=== PATIENT | male | born 1975 | race Caucasian/White ===

== ENCOUNTER 2016-04-04 10:12 | Emergency (ER) | payer MEDICAID ==
[~2016-04-04] VITALS: Ht 182.9 cm; Wt 99.8 kg
[2016-04-04 11:10] VITALS: BP 134/92
[2016-04-04] MEDS ORDERED: Azithromycin 250mg tab ORAL ONE (11:45)
[2016-04-04] MEDS ORDERED: TRAMADOL HCL50 MG ORAL (11:54)
[2016-04-04] MEDS ORDERED: CHLORPHENIRAMINE4 M1 PO (11:54)
[2016-04-04] MEDS ORDERED: AZITHROMYCIN250 MG ORAL (11:54)
[2016-04-04 12:04] VITALS: BP 134/92
--- NOTE | 2016-04-05 00:40 | Emergency Room Report ---
History of Present Illness General Chief Complaint: Sore Throat Source: Patient Present Illness HPI Patient presents with several days of URI sy. Also with R facial pain, congestion and d/c from nose. Had flu shot. No smoke. No NVD. No rashes. HANSEN but no neck pain. Pain = pressure, constant and 6/10, slight radiate to eye. Min sore throat. Some cough. No rashes. Took motrin with some relief. H/O meningitis in past -- this feels different. Allergies: Coded Allergies: No Known Allergies (Unverified , 04/04/16) Patient History Past Medical History: see triage record Social History: Denies: smoking Social History Narrative between jobs Reviewed Nursing Documentation: PMH: Agreed, PSxH: Agreed Nursing Documentation-PMH Past Medical History: No History, Except For Review of Systems All Other Systems: negative except mentioned in HPI Physical Exam Vital Signs Date Time Temp Pulse Resp B/P Pulse Ox O2 Delivery O2 Flow Rate FiO2 04/04/16 10:31 98.1 84 18 134/92 96 Room Air Sp02 EP Interpretation: reviewed, normal General Appearance: well appearing, no apparent distress, GCS 15 Head: normocephalic, atraumatic Eyes: bilateral eye PERRL, bilateral eye normal inspection ENT: hearing grossly normal, normal voice, pharyngeal erythema, other - tendern R maxillary sinus area Neck: full range of motion, supple, no meningismus Respiratory: chest non-tender, lungs clear, normal breath sounds, no respiratory distress, speaking full sentences Cardiovascular #1: regular rate, rhythm, no edema Gastrointestinal: normal bowel sounds, non tender, soft Musculoskeletal: back normal, digits/nails normal, gait/station normal, normal range of motion Neurologic: alert, oriented x3, motor strength/tone normal, sensory intact, cerebellar normal, normal gait, speech normal Psychiatric: mood/affect normal Skin: no rash Medical Decision Making Diagnostic Impression: Primary Impression: Sinusitis Qualified Codes: J01.00 - Acute maxillary sinusitis, unspecified ER Course Patient presents with URI sy and face pain. DDx: pharyngitis, sinusitis, miningitis (doubt due to exam), dental abscess, allergies amongst others. Hx and exam c/w sinusitis. Antibiotics indicated as well as decongestants and analgesics. Patient stable for outpatient observation and treatment. Last Vital Signs Date Time Temp Pulse Resp B/P Pulse Ox O2 Delivery O2 Flow Rate FiO2 04/04/16 12:04 98.1 84 18 134/92 96 Room Air Status: improved Disposition: HOME, SELF-CARE Condition: Improved Scripts Chlorpheniramine Maleate (Chlorpheniramine Maleate) 4 Mg Tablet 4 MG PO Q6HR, #12 TAB Prov: Abel Brito M.D. 04/04/16 Azithromycin* (ZITHROMAX*) 250 Mg Tablet 250 MG ORAL DAILY for 4 Days, TAB start tomorrow Prov: Abel Brito M.D. 04/04/16 Tramadol Hcl* (ULTRAM*) 50 Mg Tablet 50 MG ORAL Q6H Y for For Pain, #10 TAB 0 Refills Prov: Abel Brito M.D. 04/04/16 Referrals: [facility],REFERRING (PCP) Patient Instructions: Sinusitis, Adult Additional Instructions: OK to take tylenol. Follow up with your MD next week. Abel Brito M.D. Apr 05, 2016 00:40
== END 2016-04-04 12:04 | disposition home or self-care (01) ==
LOC: EMR 11:56
DX: J32.9 Chronic sinusitis, unspecified (principal); R51 Headache; Z86.61 Personal history of infections of the central nervous system
CPT/HCPCS: 99284; Q0144

== ENCOUNTER 2016-04-17 14:35 | Emergency (ER) | payer MEDICAID ==
[~2016-04-17] VITALS: Ht 182.9 cm; Wt 104.3 kg
[~2016-04-17 14:35] MED LIST: AZITHROMYCIN250 MG ORAL; CHLORPHENIRAMINE4 M1 PO; TRAMADOL HCL50 MG ORAL
[2016-04-17] MEDS ORDERED: Ipratropium 0.02% Inh Soln 2.5ml UD HHN ONE (15:30)
[2016-04-17] MEDS ORDERED: Albuterol ud Inhalation HHN ONE (15:30)
[2016-04-17] MEDS ORDERED: ALBUTEROL SULF8.5 GM INH (16:06)
[2016-04-17] MEDS ORDERED: LEVAQUIN500 MG ORAL (16:06)
--- NOTE | 2016-04-17 16:09 | Emergency Room Report ---
History of Present Illness General Chief Complaint: Upper Respiratory Illness Source: Patient Present Illness HPI The patient was treated for sinusitis with a Z-Panchito 2 weeks ago (04/04). It's gotten somewhat better but he still feels congestion and pressure in his sinuses with some yellow discharge when he blows his nose. He denies any fevers. He says also had some wheezing and cough. The cough does not keep him awake at night. No NVD, rashes, ear pain, neck pain, rashes. Some headache /. The patient has a history of childhood asthma. Allergies: Coded Allergies: No Known Allergies (Unverified , 04/04/16) Patient History Past Medical History: see triage record Social History: Denies: smoking Reviewed Nursing Documentation: PMH: Agreed, PSxH: Agreed Nursing Documentation-PMH Past Medical History: No Stated History Review of Systems All Other Systems: negative except mentioned in HPI Physical Exam Vital Signs Date Time Temp Pulse Resp B/P Pulse Ox O2 Delivery O2 Flow Rate FiO2 04/17/16 15:02 98.2 80 16 145/80 97 Room Air Sp02 EP Interpretation: reviewed, normal General Appearance: well appearing, no apparent distress Head: normocephalic, atraumatic Eyes: bilateral eye PERRL, bilateral eye normal inspection ENT: hearing grossly normal, normal voice Neck: full range of motion, supple Respiratory: chest non-tender, rhonchi, wheezing, expiration Cardiovascular #1: regular rate, rhythm Musculoskeletal: gait/station normal, normal range of motion Neurologic: alert, normal gait Psychiatric: mood/affect normal Skin: no rash Medical Decision Making Diagnostic Impression: Primary Impression: Sinusitis Qualified Codes: J01.01 - Acute recurrent maxillary sinusitis Additional Impression: Bronchospasm ER Course Patient with sinus pain and d/c with wheezing. Ddx; allergic, bacterial, viral , asthma, bronchitis amongst others. Need to treat with albuterol and atrovent. Will also continue antibiotics and still purulent. Also will give decadron (never with steroids in past). Still some wheezing. The patient was offered a number awaiting treatment here but for us to use the albuterol inhaler at home. He was advised that the dexamethasone will kick in and help him out but also suggested [id number] medications for congestion and cough. Also told to follow up with his own doctor. Patient stable for outpatient observation and treatment. Last Vital Signs Date Time Temp Pulse Resp B/P Pulse Ox O2 Delivery O2 Flow Rate FiO2 04/17/16 16:15 97.5 99 16 144/95 100 Room Air Status: improved Disposition: HOME, SELF-CARE Condition: Improved Scripts Albuterol Sulfate* (ALBUTEROL SULFATE MDI*) 8.5 Gm Hfa.aer.ad 2 PUFF INH Q4H, #1 INH 0 Refills Prov: Abel Brito M.D. 04/17/16 Levofloxacin* (LEVAQUIN*) 500 Mg Tablet 500 MG ORAL DAILY, #7 TAB Prov: Abel Brito M.D. 04/17/16 Referrals: [facility],REFERRING (PCP) Patient Instructions: Bronchospasm, Adult, Sinusitis, Adult Additional Instructions: Return if the breathing is getting worse. Consider over the counter decongestants and cough syrup. See your MD next week. Abel Brito M.D. Apr 17, 2016 16:09
[2016-04-17 16:15] VITALS: BP 144/95
== END 2016-04-17 16:15 | disposition home or self-care (01) ==
LOC: EMR 15:10
DX: J01.90 Acute sinusitis, unspecified (principal); J98.01 Acute bronchospasm
CPT/HCPCS: 94640; 94664; 99284; J8540

== ENCOUNTER 2016-12-04 09:28 | Emergency (ER) | payer MEDICAID ==
[~2016-12-04] VITALS: Ht 182.9 cm; Wt 97.5 kg
[~2016-12-04 09:28] MED LIST changes: +ALBUTEROL SULF8.5 GM INH; +LEVAQUIN500 MG ORAL
[2016-12-04 09:35] VITALS: BP 165/94
[2016-12-04] MEDS ORDERED: PRILOSEC OTC20 MG ORAL (09:35)
[2016-12-04 09:36] VITALS: BP 167/93
[2016-12-04] MEDS ORDERED: CLARITIN-D 241 EACH PO (10:03)
--- NOTE | 2016-12-04 10:07 | Emergency Room Report ---
History of Present Illness General Chief Complaint: Earache Source: Patient Present Illness HPI Patient presents with complaints of sensation of fluid in the left ear This was felt last week patient saw initially a friend who is a physician who told that there was some abnormality Patient then followup with primary physician who felt that there was likely wax but no obvious tumor Nevertheless was given a referral to ENT patient presents for reevaluation Denies any pain or fullness Denies any dizziness He essentially feels that when he leans his head to the left he feels a fluid shift Patient also has a recent URI with runny nose and mild cold however states that he has had the sensation previously without symptoms Allergies: Coded Allergies: No Known Allergies (Unverified , 04/04/16) Patient History Past Medical History: see triage record Pertinent Family History: none Reviewed Nursing Documentation: PMH: Agreed, PSxH: Agreed Nursing Documentation-PMH Past Medical History: No History, Except For Hx Gastrointestinal Problems: Yes - heartburn Review of Systems All Other Systems: negative except mentioned in HPI Physical Exam Vital Signs Date Time Temp Pulse Resp B/P (MAP) Pulse Ox O2 Delivery O2 Flow Rate FiO2 12/04/16 09:31 97.5 82 16 167/93 99 Room Air Sp02 EP Interpretation: reviewed, normal General Appearance: well appearing, no apparent distress Head: normocephalic, atraumatic Eyes: bilateral eye PERRL, bilateral eye EOMI ENT: other - Left tympanic membrane shows some previous scarring but no obvious acute pathology, the canal is clear there was a small amount of cerumen on the medial aspect of the wall of the canal however no obvious impaction, no obvious masses or tumors clinically Neck: supple Respiratory: lungs clear Musculoskeletal: normal inspection Neurologic: alert, oriented x3, responsive Skin: normal color, no rash Lymphatic: no adenopathy Medical Decision Making Diagnostic Impression: Primary Impression: Earache, left Additional Impression: uri ER Course Given the evaluation and presentation I did not feel that any further emergency intervention was required patient is being provided outpatient ENT followup which is appropriate Patient was provided with decongestants to see if that improves the fluid sensation behind the ear And will return with any changes Last Vital Signs Date Time Temp Pulse Resp B/P (MAP) Pulse Ox O2 Delivery O2 Flow Rate FiO2 12/04/16 09:31 97.5 82 16 167/93 99 Room Air Status: unchanged Disposition: HOME, SELF-CARE Condition: Stable Scripts Loratadine/Pseudoephedrine (CLARITIN-D 24 HOUR TABLET) 1 Each Tab.er.24h 1 TAB PO DAILY, #15 TAB Prov: JUAN J LUNSFORD D.O. 12/04/16 Patient Instructions: Earache Additional Instructions: Your exam today does not reveal any obvious mass or tumors, better clinically visible. There is no signs of any cerumen impaction. The sensation of fluid behind the left ear, is likely related to the cold like symptoms that you have. Nevertheless since you have been provided with referral for ENT, it will be very important to keep this appointment and follow closely JUAN J LUNSFORD D.O. Dec 04, 2016 10:07
[2016-12-04 10:22] VITALS: BP 164/93
== END 2016-12-04 10:22 | disposition home or self-care (01) ==
LOC: EMR 10:20
DX: H92.02 Otalgia, left ear (principal); J06.9 Acute upper respiratory infection, unspecified
CPT/HCPCS: 99283

== ENCOUNTER 2020-02-12 18:02 | Emergency (ER) | payer MEDICAID, OTHER ==
[~2020-02-12] VITALS: Ht 182.9 cm; Wt 99.8 kg
[~2020-02-12 18:02] MED LIST changes: +CLARITIN-D 241 EACH PO; +PRILOSEC OTC20 MG ORAL
[2020-02-12 18:25] VITALS: BP 141/90
[2020-02-12 19:02] LABS: APPEARANCE,URINE CLOUDY; BILIRUBIN, URINE NEGATIVE (NEGATIVE); GLUCOSE, URINE (UA) NEGATIVE (NEGATIVE); KETONES,URINE 1+ (NEGATIVE); LEUKOCYTE ESTERASE ,URINE 1+ (NEGATIVE); NITRITE,URINE NEGATIVE (NEGATIVE); PH,URINE 5 (4.5-8.0); PROTEIN,URINE 2+ (NEGATIVE); UROBILINOGEN,URINE NORMAL MG/DL (0.0-1.0)
[2020-02-12 19:09] LABS: BASOPHILS % (AUTO) 1.4 % (0.0-2.0); COLOR,URINE YELLOW; EOSINOPHILS % (AUTO) 1.4 % (0.0-3.0); HEMATOCRIT 44.2 % (42.0-52.0); HEMOGLOBIN 15.2 G/DL (14.2-18.0); LYMPHOCYTES % (AUTO) 30.2 % (20.0-45.0); MEAN CORPUSCULAR VOLUME 91 FL (80-99); MONOCYTES % (AUTO) 4.6 % (1.0-10.0); NEUTROPHILS % (AUTO) 62.4 % (45.0-75.0); PLATELET COUNT 290 K/UL (150-450); RED BLOOD COUNT 4.84 M/UL (4.70-6.10); RED CELL DISTRIBUTION WIDTH 12.9 % (11.6-14.8); WHITE BLOOD COUNT 9.7 K/UL (4.8-10.8)
[2020-02-12 19:12] LABS: ANION GAP 11 mmol/L (5-15); BLOOD UREA NITROGEN 20 mg/dL (7-18); CALCIUM 9.3 MG/DL (8.5-10.1); CARBON DIOXIDE 24 MMOL/L (21-32); CHLORIDE 102 MMOL/L (98-107); CREATININE 1.2 MG/DL (0.55-1.30); POTASSIUM 3.6 MMOL/L (3.5-5.1); SODIUM 137 MMOL/L (136-145)
[2020-02-12 19:16] LABS: ALANINE AMINOTRANSFERASE 99 U/L (12-78); ALBUMIN 4.2 G/DL (3.4-5.0); ALBUMIN/GLOBULIN RATIO 1.2 (1.0-2.7); ALKALINE PHOSPHATASE 60 U/L (46-116); ASPARTATE AMINO TRANSFERASE 39 U/L (15-37); BILIRUBIN,TOTAL 0.6 MG/DL (0.2-1.0)
[2020-02-12] MEDS ORDERED: cefTRIAXone 1 GM in NS 55 ML IVPB ONE (19:30)
[2020-02-12 19:46] VITALS: BP 135/85
--- NOTE | 2020-02-12 20:06 | Diagnostic Imaging Report ---
EXAM: CT Abdomen and Pelvis Without Intravenous Contrast CLINICAL HISTORY: FLANK TECHNIQUE: Axial computed tomography images of the abdomen and pelvis without intravenous contrast. CTDI is 13.0 mGy and DLP is 719.2 mGy-cm. One or more of the following dose reduction techniques were used: automated exposure control, adjustment of the mA and/or kV according to patient size, use of iterative reconstruction technique. COMPARISON: No relevant prior studies available. FINDINGS: Lung bases: Unremarkable. No mass. No consolidation. ABDOMEN: Liver: Unremarkable. Gallbladder and bile ducts: Unremarkable. No calcified stones. No ductal dilation. Pancreas: Unremarkable. No ductal dilation. Spleen: Unremarkable. No splenomegaly. Adrenals: Unremarkable. No mass. Kidneys and ureters: Unremarkable. No obstructing stones. No hydronephrosis. Stomach and bowel: Unremarkable. No obstruction. No mucosal thickening. PELVIS: Appendix: No findings to suggest acute appendicitis. Bladder: Unremarkable. No stones. Reproductive: Unremarkable as visualized. ABDOMEN and PELVIS: Intraperitoneal space: Unremarkable. No free air. No significant fluid collection. Bones/joints: No acute fracture. No dislocation. Soft tissues: Unremarkable. Vasculature: Unremarkable. No abdominal aortic aneurysm. Lymph nodes: Unremarkable. No enlarged lymph nodes. IMPRESSION: Normal abdomen and pelvis CT.
[2020-02-12] MEDS ORDERED: PHENAZOPYRIDIN100 MG ORAL (20:13)
[2020-02-12] MEDS ORDERED: CEPHALEXIN500 MG ORAL (20:13)
[2020-02-12] MEDS ORDERED: ACETAMINOPHEN-1 EAC1 ORAL (20:13)
[2020-02-12 20:20] VITALS: BP 133/79
--- NOTE | 2020-02-17 00:24 | Emergency Room Report ---
History of Present Illness General Chief Complaint: Abdominal Pain Source: Patient Present Illness HPI 44-year-old male presents for abdominal pain. Started earlier today. Localized to lower abdomen radiating to back. Pain was severe in the waiting room but resolved upon arrival. Denies fevers or chills. Denies nausea or vomiting. Not sure if it has his appendix. No other aggravating relieving factors. 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: No Patient History Past Medical History: GERD Past Surgical History: none Pertinent Family History: none Social History: Denies: smoking, alcohol use, drug use Immunizations: UTD Reviewed Nursing Documentation: PMH: Agreed; PSxH: Agreed Nursing Documentation-PMH Past Medical History: No History, Except For Hx Gastrointestinal Problems: Yes - heartburn Review of Systems All Other Systems: negative except mentioned in HPI Physical Exam Sp02 EP Interpretation: reviewed, normal General Appearance: no apparent distress, alert, GCS 15, non-toxic Head: normocephalic, atraumatic Eyes: bilateral eye normal inspection, bilateral eye PERRL ENT: hearing grossly normal, normal pharynx, no angioedema, normal voice Neck: full range of motion, supple/symm/no masses Respiratory: chest non-tender, lungs clear, normal breath sounds, speaking full sentences Cardiovascular #1: regular rate, rhythm, no edema Cardiovascular #2: 2+ carotid (R), 2+ carotid (L), 2+ radial (R), 2+ radial (L), 2+ dorsalis pedis (R), 2+ dorsalis pedis (L) Gastrointestinal: normal bowel sounds, soft, non-distended, no guarding, no rebound, tenderness - RLQ/Suprapubic Rectal: deferred Genitourinary: normal inspection, no CVA tenderness Musculoskeletal: back normal, normal range of motion, gait/station normal, non- tender Neurologic: alert, motor strength/tone normal, oriented x3, sensory intact, responsive, speech normal Psychiatric: judgement/insight normal, memory normal, mood/affect normal, no suicidal/homicidal ideation Reflexes: 3+ bicep (R), 3+ bicep (L), 3+ tricep (R), 3+ tricep (L), 3+ knee (R), 3+ knee (L) Lymphatic: no adenopathy Medical Decision Making Diagnostic Impression: Primary Impression: Cystitis ER Course Hospital Course 44-year-old M presents to ED with abdominal pain Differential diagnosis includes-appendicitis, cholecystitis, small bowel obstruction, gastritis, Clinical course Patient placed on stretcher. After initial history and physical I ordered labs, IV fluids, UA, CT Labs - no leukocytosis, electrolytes ok, LFTs normal, UA + blood + bacteria given IV rocpehin in ED CT scan shows no acute pathology I discussed findings with patient. Abdomen soft. consideration for kidney stone versus cystitis. More likely cystitis. Safe for discharge close outpatient follow-up. Does not have a PMD. I will provide referrals I feel this is a highly complex case requiring extensive working including EKG/R hythm strip, Xray/CT/US, Blood/urine lab work, repeat exams while in ED, and administration of strong opiates/narcotics for pain control, admission to hospital or close patient follow up. Diagnosis - cystitis Stable and discharged to home with Rx Keflex T3, pyridium. Followup with PMD. Return to ED if symptoms recur or worsen Labs Test 02/12/20 18:31 White Blood Count 9.7 K/UL (4.8-10.8) Red Blood Count 4.84 M/UL (4.70-6.10) Hemoglobin 15.2 G/DL (14.2-18.0) Hematocrit 44.2 % (42.0-52.0) Mean Corpuscular Volume 91 FL (80-99) Mean Corpuscular Hemoglobin 31.5 PG (27.0-31.0) Mean Corpuscular Hemoglobin Concent 34.5 G/DL (32.0-36.0) Red Cell Distribution Width 12.9 % (11.6-14.8) Platelet Count 290 K/UL (150-450) Mean Platelet Volume 8.2 FL (6.5-10.1) Neutrophils (%) (Auto) 62.4 % (45.0-75.0) Lymphocytes (%) (Auto) 30.2 % (20.0-45.0) Monocytes (%) (Auto) 4.6 % (1.0-10.0) Eosinophils (%) (Auto) 1.4 % (0.0-3.0) Basophils (%) (Auto) 1.4 % (0.0-2.0) Urine Color Yellow Urine Appearance Cloudy Urine pH 5 (4.5-8.0) Urine Specific Lynch 1.025 (1.005-1.035) Urine Protein 2+ (NEGATIVE) Urine Glucose (UA) Negative (NEGATIVE) Urine Ketones 1+ (NEGATIVE) Urine Blood 5+ (NEGATIVE) Urine Nitrite Negative (NEGATIVE) Urine Bilirubin Negative (NEGATIVE) Urine Urobilinogen Normal MG/DL (0.0-1.0) Urine Leukocyte Esterase 1+ (NEGATIVE) Urine RBC Tntc /HPF (0 - 0) Urine WBC 5-10 /HPF (0 - 0) Urine Squamous Epithelial Cells Moderate /LPF (NONE/OCC) Urine Bacteria Moderate /HPF (NONE) Sodium Level 137 MMOL/L (136-145) Potassium Level 3.6 MMOL/L (3.5-5.1) Chloride Level 102 MMOL/L (98-107) Carbon Dioxide Level 24 MMOL/L (21-32) Anion Gap 11 mmol/L (5-15) Blood Urea Nitrogen 20 mg/dL (7-18) Creatinine 1.2 MG/DL (0.55-1.30) Estimat Glomerular Filtration Rate > 60 mL/min (>60) Glucose Level 133 MG/DL (74-106) Calcium Level 9.3 MG/DL (8.5-10.1) Total Bilirubin 0.6 MG/DL (0.2-1.0) Aspartate Amino Transf (AST/SGOT) 39 U/L (15-37) Alanine Aminotransferase (ALT/SGPT) 99 U/L (12-78) Alkaline Phosphatase 60 U/L (46-116) Total Protein 7.8 G/DL (6.4-8.2) Albumin 4.2 G/DL (3.4-5.0) Globulin 3.6 g/dL Albumin/Globulin Ratio 1.2 (1.0-2.7) Lipase 132 U/L (73-393) CT/MRI/US Diagnostic Results CT/MRI/US Diagnostic Results : Imaging Test Ordered: CT A/P Impression Procedure: CT Abdomen Pelvis WO Contrast EXAM: CT Abdomen and Pelvis Without Intravenous Contrast CLINICAL HISTORY: FLANK TECHNIQUE: Axial computed tomography images of the abdomen and pelvis without intravenous contrast. CTDI is 13.0 mGy and DLP is 719.2 mGy-cm. One or more of the following dose reduction techniques were used: automated exposure control, adjustment of the mA and/or kV according to patient size, use of iterative reconstruction technique. COMPARISON: No relevant prior studies available. FINDINGS: Lung bases: Unremarkable. No mass. No consolidation. ABDOMEN: Liver: Unremarkable. Gallbladder and bile ducts: Unremarkable. No calcified stones. No ductal dilation. Pancreas: Unremarkable. No ductal dilation. Spleen: Unremarkable. No splenomegaly. Adrenals: Unremarkable. No mass. Kidneys and ureters: Unremarkable. No obstructing stones. No hydronephrosis. Stomach and bowel: Unremarkable. No obstruction. No mucosal thickening. PELVIS: Appendix: No findings to suggest acute appendicitis. Bladder: Unremarkable. No stones. Reproductive: Unremarkable as visualized. ABDOMEN and PELVIS: Intraperitoneal space: Unremarkable. No free air. No significant fluid collection. Bones/joints: No acute fracture. No dislocation. Soft tissues: Unremarkable. Vasculature: Unremarkable. No abdominal aortic aneurysm. Lymph nodes: Unremarkable. No enlarged lymph nodes. IMPRESSION: Normal abdomen and pelvis CT. Status: improved Disposition: HOME, SELF-CARE Condition: Stable Scripts Phenazopyridine Hcl* (PYRIDIUM*) 100 Mg Tablet 100 MG ORAL THREE TIMES A DAY, #9 TAB Prov: Tylor Jasso MD 02/12/20 Acetaminophen With Codeine (T#3) (TYLENOL #3 TAB*) Y Tab 1 TAB ORAL Q8H PRN for For Pain, #12 TAB Prov: Tylor Jasso MD 02/12/20 Cephalexin* (KEFLEX*) 500 Mg Capsule 500 MG ORAL EVERY 6 HOURS, #28 CAP Prov: Tylor Jasso MD 02/12/20 Referrals: Abel Mirza MD, Payam MD Patient Instructions: Hematuria, Adult Tylor Jasso MD Feb 17, 2020 00:24
== END 2020-02-12 20:20 | disposition home or self-care (01) ==
LOC: EMR 18:45
DX: N30.90 Cystitis, unspecified without hematuria (principal)
CPT/HCPCS: 36415; 74176; 80053; 81003; 83690; 85025; 87086; 96361; 96365; 99284; J0696